=== PATIENT | female | born 1980 | race Two or more races ===

== ENCOUNTER 2022-07-17 21:31 | Emergency (ER) | payer SELFPAY ==
[~2022-07-17] VITALS: Ht 175.3 cm; Wt 104.5 kg
[2022-07-17 23:32] VITALS: BP 146/101
[2022-07-18] MEDS ORDERED: HYDROcodone-ACET 5/325MG TAB PO ONE (00:30)
[2022-07-18] MEDS ORDERED: cefTRIAXone SOD 1,000 MG VL IM ONE (00:30)
[2022-07-18] MEDS ORDERED: diphenhdrAMINE HCL 25 MG CAP PO ONE (00:30)
== END 2022-07-18 01:04 | disposition home or self-care (01) ==
LOC: ER 21:31
DX: K04.7 Periapical abscess without sinus (principal); Z88.5 Allergy status to narcotic agent
CPT/HCPCS: 96372; 99283; J0696